=== PATIENT | female | born 1980 | race Caucasian/White ===

== ENCOUNTER 2017-12-12 21:52 | Emergency (ER) | payer BC ==
--- NOTE | 2017-12-12 21:59 | ER Report ---
History and Physical Time Seen By MD: 21:59 HPI/ROS CHIEF COMPLAINT: Sharp right lower rib pain HISTORY OF PRESENT ILLNESS: 37-year-old female presents ambulatory to the ER complaining of increasing right lower rib pain. For one week. He is getting worse today. Patient's here in [facility]. He notes no fever, chills or productive cough. She notes increasing pain with movement and occasionally with deep inspiration. She recalls no injury. She notes acute muscle spasm of her abdomen. She notes increased pain with tightening of her abdominal muscles and chest wall muscles. She denies leg swelling or calf pain. Patient's not taking any form of control. Patient notes no dysuria for 3 or hematuria. Patient notes no rashes to suggest shingles. Patient admits prior to going on vacation. She was performing dance and thinks she may have pulled her chest wall muscles. REVIEW OF SYSTEMS: Respiratory: No cough, no dyspnea. Cardiovascular: No chest pain, no palpitations. Gastrointestinal: No vomiting, no abdominal pain. Musculoskeletal: No back pain. Allergies: Coded Allergies: No Known Drug Allergies (Unverified , 12/12/17) Home Meds No Active Prescriptions or Reported Meds Past Medical/Surgical History Unremarkable Reviewed Nurses Notes: Yes Old Medical Records Reviewed: Yes Constitutional Vital Sign - Last 24 Hours 12/12/17 12/12/17 12/12/17 12/12/17 21:55 21:57 22:00 22:07 Temp 98.6 Pulse 89 73 Resp 16 B/P (MAP) 134/97 (109) 134/97 143/104 (117) Pulse Ox 96 98 O2 Delivery Room Air 12/12/17 12/12/17 12/12/17 12/12/17 22:30 22:37 22:42 22:47 Pulse 74 68 82 B/P (MAP) 112/73 (86) Pulse Ox 99 96 98 Physical Exam Vital signs stable, afebrile, pulse ox normal General Appearance: The patient is alert, has no immediate need for airway protection and no current signs of toxicity. Mild distress HEENT: Pupils equal and round no injection. TMs normal, oropharynx without redness or exudate, mucous. Membranes are moist Respiratory: Chest is non tender, lungs are clear to auscultation. There was a inspiratory honk noted on inspiration Right lower lateral rib tenderness along the costal margin. Cardiac: regular rate and rhythm, no murmur Gastrointestinal: Abdomen is soft and non tender, no masses, bowel sounds normal. Musculoskeletal: Neck: Neck is supple and non tender. No lymphadenopathy Extremities have full range of motion and are non tender. Skin: No rashes or lesions. DIFFERENTIAL DIAGNOSIS: After history and physical exam differential diagnosis was considered for costochondritis, pleurisy, chest wall strain, costal cartilage separation, gallbladder disease, kidney infection, kidney stone Medical Decision Making EKG/Imaging Imaging X-ray: Two-view chest x-ray was obtained. I viewed the images myself on the PACS system. My interpretation of the images is: No infiltrate, no effusion, normal mediastinum. The radiologist interpretation had no clinically significant variation from this interpretation. ED Course/Re-evaluation ED Course Patient was admitted to an examination room. H&P was done. The differential diagnoses was considered. On clinical examination. Patient has tenderness to her right anterolateral lower ribs. There is no crepitus and no rash. Lung sounds are clear bilaterally. A chest x-rays performed, which shows no obvious fracture, effusion or infiltrate. Patient was advised to continue Aleve 2 tablets twice a day. She was offered medication for additional pain relief, which she declined. She is advised to apply heating pad to the affected area. She is advised to follow-up with her primary care physician in 3-5 days if unimproved. Decision to Disposition Date: Dec 12, 2017 Decision to Disposition Time: 22:25 Depart Departure Latest Vital Signs Vital Signs Date Time Temp Pulse Resp B/P (MAP) Pulse Ox O2 Delivery O2 Flow Rate FiO2 12/12/17 22:47 82 98 12/12/17 22:30 112/73 (86) 12/12/17 21:57 98.6 16 Room Air Impression: Primary Impression: Chest wall pain Condition: Improved Disposition: HOME OR SELF-CARE New Scripts No Active Prescriptions or Reported Meds Patient Instructions: Chest Wall Pain (ED) Additional Instructions: Continue Aleve 2 pills twice a day with food Apply hot compresses to the affected area Follow-up with your primary care physician if unimproved in 3-5 days. FRANCISCA HOYT DO Dec 12, 2017 21:59
[2017-12-12 22:30] VITALS: BP 112/73
--- NOTE | 2017-12-12 22:46 | RADIOLOGY IMAGING REPORT ---
FACILITY: [facility] PATIENT NAME: Ozzy Isidro : 1980 MR: [id number] V: [id number] EXAM DATE: ORDERING PHYSICIAN: FRANCISCA HOYT TECHNOLOGIST: Location: [facility] Patient: Ozzy Isidro : 1980 Visit/Account:[id number] Date of Sevice: 12/12/2017 CHEST: Indication: Persistent chest wall pain. Technique: Frontal and lateral views were obtained. Comparison: None. Skeletal and soft tissue structures: Well mineralized and intact. There are no signs of fracture or a cute deformity. Heart and mediastinum: Within normal limits. Lung serrato: Well-expanded and clear. Pleural spaces: Unremarkable. Impression: No acute process. Report Dictated By: Bradley Bain MD at 12/12/2017 10:40 PM Report E-Signed By: Bradley Bain MD at 12/12/2017 10:42 PM WSN:[id number]
== END 2017-12-12 22:53 | disposition home or self-care (01) ==
LOC: ER 21:59
DX: R07.89 Other chest pain (principal)
CPT/HCPCS: 71046; 99283